=== PATIENT | male | born 1965 | race Caucasian/White ===

== ENCOUNTER 2023-07-07 07:02 | Outpatient (CLI) | payer OTHER | END 2023-07-07 08:06 | disposition home or self-care (01) | LOC: LAB 07:02 → EDBD 07:02 → LAB 08:06 | DX: E78.5 Hyperlipidemia, unspecified (principal); R39.16 Straining to void; Z12.5 Encounter for screening for malignant neoplasm of prostate; Z13.1 Encounter for screening for diabetes mellitus; Z13.220 Encounter for screening for lipoid disorders; Z13.228 Encounter for screening for other metabolic disorders; Z13.89 Encounter for screening for other disorder; Z11.3 Encounter for screening for infections with a predominantly sexual mode of transmission ==

== ENCOUNTER 2023-07-07 08:03 | Outpatient (CLI) | payer OTHER | END 2023-07-07 08:31 | disposition home or self-care (01) | LOC: SONOGRAMA 08:03 | PROVIDERS: ATTEND General Practice | DX: E78.5 Hyperlipidemia, unspecified (principal); R39.16 Straining to void; Z12.5 Encounter for screening for malignant neoplasm of prostate; Z12.11 Encounter for screening for malignant neoplasm of colon; Z13.1 Encounter for screening for diabetes mellitus; Z13.220 Encounter for screening for lipoid disorders; Z13.228 Encounter for screening for other metabolic disorders; Z13.89 Encounter for screening for other disorder; Z11.3 Encounter for screening for infections with a predominantly sexual mode of transmission ==

== ENCOUNTER 2024-06-28 07:58 | Outpatient (CLI) | payer OTHER | END 2024-06-28 08:01 | disposition home or self-care (01) | LOC: MRI 07:58 | PROVIDERS: ATTEND General Practice | DX: M25.511 Pain in right shoulder (principal) | CPT/HCPCS: 73221 ==